=== PATIENT | female | born 1990 | race Caucasian/White ===

== ENCOUNTER 2016-09-10 14:38 | Emergency (ER) | payer OTHER ==
[~2016-09-10] VITALS: Ht 157.5 cm; Wt 68.1 kg
[2016-09-10 14:39] VITALS: BP 131/86
[2016-09-10] MEDS ORDERED: TOPI50TA9 PO (14:52)
[2016-09-10] MEDS ORDERED: AMIT75TA PO (14:52)
[2016-09-10] MEDS ORDERED: METF500T13 PO (14:52)
[2016-09-10] MEDS ORDERED: MIREIUD (14:52)
[2016-09-10] MEDS ORDERED: IBUP80TA (14:52)
[2016-09-10] MEDS ORDERED: KETOROLAC 60 MG/2 ML VIAL (J1885) IM ONE (17:00)
[2016-09-10] MEDS ORDERED: metroNIDAZOLE (FLAGYL) 500 MG TAB PO ONE (18:15)
--- NOTE | 2016-09-10 18:35 | REP ---
NON-OB PELVIS ULTRASOUND: HISTORY: Pelvic pain. The uterus is normal in size. The uterus measures 3.7 cm in transverse by 3.2 cm AP by 6.4 cm in cephalocaudal dimensions. The endometrium measures 6.3 mm. An IUD is present in the endometrial cavity. The right ovary measures 4.5 x 2.1 x 2.1 cm. The left ovary measures 3.6 x 2 x 3.1 cm. There is no free fluid. There are no filling defects in the urinary bladder. IMPRESSION: Normal pelvic ultrasound. An IUD is present. Signed by Cole He MD 09/10/2016 06:51 P
[2016-09-10] MEDS ORDERED: FLAG500T PO (18:52)
[2016-11-22] MEDS ORDERED: IBUP1TAB7 PO (13:17)
[2016-11-22] MEDS ORDERED: ZOMI5TAB12 PO (13:17)
== END 2016-09-10 19:08 | disposition home or self-care (01) ==
LOC: M ED 14:38
DX: N76.0 Acute vaginitis (principal); G43.709 Chronic migraine without aura, not intractable, without status migrainosus; E28.2 Polycystic ovarian syndrome; Z87.42 Personal history of other diseases of the female genital tract; Z88.5 Allergy status to narcotic agent; Z88.8 Allergy status to other drugs, medicaments and biological substances; Z79.899 Other long term (current) drug therapy; Z79.3 Long term (current) use of hormonal contraceptives
CPT/HCPCS: 76830; 76856; 81001; 81025; 87210; 87491; 87591; 93976; 96372; 99284; J1885

== ENCOUNTER 2016-11-26 07:05 | Day surgery (SDC) | payer OTHER ==
[~2016-11-26] VITALS: Ht 157.5 cm; Wt 64.9 kg
[~2016-11-26 07:05] MED LIST: AMIT75TA PO; FLAG500T PO; IBUP1TAB7 PO; IBUP80TA; METF500T13 PO; MIREIUD; TOPI50TA9 PO; ZOMI5TAB12 PO
[2016-11-26] MEDS ORDERED: GLYCOPYRROLATE INJ 0.2 MG/ML 2 ML VIAL As Ordered ONE (07:09)
[2016-11-26] MEDS ORDERED: ROCURONIUM BROMIDE 50 MG/5 ML VIAL/SYRINGE As Ordered ONE (07:09)
[2016-11-26] MEDS ORDERED: LIDOCAINE 2% INJ 100 MG/5 ML SDV (FOR ANES.) As Ordered ONE (07:09)
[2016-11-26] MEDS ORDERED: PROPOFOL 200 MG/20 ML VIAL As Ordered ONE (07:09)
[2016-11-26] MEDS ORDERED: ONDANSETRON 4MG/2ML VIAL (J2405) As Ordered ONE ×2 (07:10→09:21)
[2016-11-26] MEDS ORDERED: dexameTHASONE 4 MG/ML 1ML VIAL (J1100) As Ordered ONE (07:10)
[2016-11-26] MEDS ORDERED: NEOSTIGMINE 10 MG/10 ML VIAL (J2710) As Ordered ONE (07:10)
[2016-11-26] MEDS ORDERED: MIDAZOLAM INJ 2 MG/2 ML VIAL (J2250) As Ordered ONE (07:11)
[2016-11-26] MEDS ORDERED: fentaNYL 100 MCG/2 ML INJECTION (J3010) As Ordered ONE ×2 (07:11→09:21)
[2016-11-26] MEDS ORDERED: METHYLENE BLUE 0.5% (5MG/ML) 10 ML AMP (PROVAYBLUE)(Q9968 PER 1MG) As Ordered ONE (07:18)
[2016-11-26] MEDS ORDERED: BUPIVACAINE HCL 0.25% 30 ML VIAL As Ordered ONE (07:19)
[2016-11-26] MEDS ORDERED: ACETAMINOPHEN 650 MG SUPP As Ordered ONE (07:19)
[2016-11-26] MEDS ORDERED: SCOPOLAMINE 1.5 MG TRANSDERMAL As Ordered ONE (07:27)
[2016-11-26] MEDS ORDERED: LR 1,000 ML IV SCH ×3 (07:30→09:45)
[2016-11-26 07:33] LABS: MEAN CORPUSCULAR HEMOGLOBIN 32.1 pg (27.0-33.0); MEAN CORPUSCULAR HGB CONC 34.7 g/dl (32.0-36.5); MEAN CORPUSCULAR VOLUME 92.3 fl (80.0-96.0); RED CELL DISTRIBUTION WIDTH 11.9 % (11.5-14.5); WHITE BLOOD COUNT 9.9 10^3/uL (4.0-10.0)
[2016-11-26] MEDS ORDERED: SCOPOLAMINE 1.5 MG TRANSDERMAL TOP ONE (07:45)
[2016-11-26 07:58] LABS: ANION GAP 5 MEQ/L (8-16); BLOOD UREA NITROGEN 12 MG/DL (7-18); CARBON DIOXIDE LEVEL 26 MEQ/L (21-32); CHLORIDE LEVEL 110 MEQ/L (98-107); CREATININE FOR GFR 0.89 MG/DL (0.55-1.02); GLOMERULAR FILTRATION RATE > 60.0 (>60); GLUCOSE, FASTING 94 MG/DL (70-105); HCG, SERUM QUANTITATIVE < 1.0 MIU/ML; POTASSIUM SERUM 4.2 MEQ/L (3.5-5.1); SODIUM LEVEL 141 MEQ/L (136-145)
[2016-11-26] MEDS ORDERED: HYDROmorphone HCL 2 MG/ML 1ML VIAL (J1170) As Ordered ONE (08:38)
[2016-11-26] MEDS ORDERED: KETOROLAC 30 MG/ML VIAL (J1885) As Ordered ONE (09:21)
[2016-11-26] MEDS ORDERED: PERCOCET 5MG/325MG TAB As Ordered ONE (09:21)
[2016-11-26] MEDS: fentaNYL 100 MCG/2 ML INJECTION (J3010) IV PRN ×4 (09:25→09:40)
[2016-11-26] MEDS: PERCOCET 5MG/325MG TAB PO PRN ×2 (09:30→10:00)
[2016-11-26] MEDS ORDERED: KETOROLAC 30 MG/ML VIAL (J1885) IV PRN (09:30)
[2016-11-26] MEDS ORDERED: ONDANSETRON 4MG/2ML VIAL (J2405) IV PRN (09:45)
[2016-11-26 11:29] VITALS: BP 111/56
--- NOTE | 2016-12-01 09:17 | RO ---
DATE OF PROCEDURE: 11/26/2016 PREOPERATIVE DIAGNOSES: PCOS, impacted intrauterine contraceptive device (IUCD), dysmenorrhea, primary infertility. POSTOPERATIVE DIAGNOSES: PCOS, nonpatent right tube, patent left tube, stage I endometriosis, and impacted IUCD. OPERATION PROPOSED: Laparoscopy, stage, grade, vaporization endometriosis, chromotubation, hysteroscopy, dilation and curettage (D and C), removal of IUCD. OPERATION PERFORMED: Diagnostic laparoscopy, chromotubation of tubes, removal of IUCD, D and C. SURGEON: Alfa Son MD MANAGER OF WAREHOUSE: Macho Griffin MD ANESTHESIA: General, plus local anesthetic for intraperitoneal procedures. ESTIMATED BLOOD LOSS: 20 mL. No antibiotics required. DESCRIPTION OF PROCEDURE: Under adequate anesthesia, prepped and draped in the supine position, Sun catheter in the bladder draining clear urine. A time-out performed. Weighted speculum in vagina. A single-tooth tenaculum on the anterior lip of the cervix. We were able to document the strings of the IUCD and, therefore, this was pulled, after which it was sent to pathology under separate cover. A single-tooth tenaculum on the anterior lip of cervix and a uterine elevator placed in the endocervical canal for chromotubation. Reprepping, draping, small subumbilical incision made. Direct entry into the abdomen. No evidence of perforation, hemorrhage or bleeding. Panoramic review of the right upper quadrant was normal. The left upper quadrant was normal. Anterior aspect of the bladder was clear. Both round ligaments were normal. Both tubes appeared normal to the fimbriated end. Interestingly, both ovaries appeared to be polycystic with a thick white covering, no evidence of ovulation. In the cul-de-sac, there was scant areas of endometriosis with staining of the peritoneal surfaces. A 3 mm port was placed on the right side elevating the uterus to identify the uterosacrals and the endometriosis. We then, under direct vision, did a chromotubation of the tubes, and the left tube was patent. The right tube was blocked from the corner right to the fimbriated end. Despite the fact that the tube itself looked absolutely normal with a normal fimbriated end, obviously, there is some type of blockage at the cornual end, possibly endometriosis. We blocked off the left tube to increase pressure and chances of getting the right tube to be patent, although it never spilled and never entered the tube. The uterus itself dilated up but, obviously, no pressure went through having the dye go through the right tube. We lavaged out the abdomen that had the dye in it, left 150 mL of normal saline in place. Going below, we then did a curettage. This patient's last period was 11/16/2016. The uterus was placed in anatomical position. The uterine elevator was taken out of the uterus. Sun catheter was removed. The surgical first assistant put Dermabond in the incisional sites and skin tapes after local installation Marcaine 0.25%, 10 mL, and the patient was then sent to recovery in good condition. PLAN: Options are if patient is not wanting to get immediately, Mirena IUCD or continuous oral contraceptives or Depo-Provera to suppress the endometriosis or 3 months of Depo Lupron with reevaluation of tube at that time. Patient can still get off the left side, but the right side is definitely blocked for etiology unknown. All this was discussed with the patient.
== END 2016-11-26 11:48 | disposition home or self-care (01) ==
LOC: M SDC 07:05
PROVIDERS: ATTEND Obstetrics & Gynecology
DX: E28.2 Polycystic ovarian syndrome (principal); T83.39XA Other mechanical complication of intrauterine contraceptive device, initial encounter; N80.3 Endometriosis of pelvic peritoneum; N83.8 Other noninflammatory disorders of ovary, fallopian tube and broad ligament; G43.909 Migraine, unspecified, not intractable, without status migrainosus; Z88.5 Allergy status to narcotic agent; Z88.8 Allergy status to other drugs, medicaments and biological substances; Z79.899 Other long term (current) drug therapy; X58.XXXA Exposure to other specified factors, initial encounter; Y92.89 Other specified places as the place of occurrence of the external cause; Y93.89 Activity, other specified; Y99.8 Other external cause status
CPT/HCPCS: 36415; 58301; 58350; 58558; 58662; 80048; 84702; 85027; 88300; 88305; J1100; J1170; J1885; J2250; J2405; J2710; J3010; Q9968

== ENCOUNTER 2018-02-18 14:40 | Emergency (ER) | payer OTHER ==
[~2018-02-18] VITALS: Ht 154.9 cm; Wt 64.1 kg
[~2018-02-18 14:40] MED LIST changes: +MIRE1IUD; -MIREIUD
[2018-02-18] MEDS ORDERED: BOTO10VL IM (14:47)
[2018-02-18] MEDS ORDERED: NEXP1IMP SC (14:47)
[2018-02-18] MEDS ORDERED: diphenhydrAMINE INJ 50MG/ML VIAL (J1200) IV STA (15:17)
[2018-02-18] MEDS ORDERED: KETOROLAC 30 MG/ML VIAL (J1885) IV ONE (15:30)
[2018-02-18] MEDS ORDERED: METOCLOPRAMIDE INJ 10MG/2ML VIAL (J2765) IV ONE (15:30)
[2018-02-18] MEDS ORDERED: NS 1,000 ML IV ONE (15:30)
[2018-02-18 16:02] LABS: BLOOD UREA NITROGEN 14 MG/DL (7-18); CALCIUM LEVEL 8.4 MG/DL (8.5-10.1); CARBON DIOXIDE LEVEL 24 MEQ/L (21-32); CHLORIDE LEVEL 113 MEQ/L (98-107); CREATININE FOR GFR 0.94 MG/DL (0.55-1.30); GLOMERULAR FILTRATION RATE > 60.0 (>60); GLUCOSE, FASTING 68 MG/DL (70-100); MAGNESIUM LEVEL 2.1 MG/DL (1.8-2.4); POTASSIUM SERUM 3.6 MEQ/L (3.5-5.1); SODIUM LEVEL 145 MEQ/L (136-145)
[2018-02-18] MEDS ORDERED: MAG SULF 1GM/100ML (MAG RUN) 1 GM in APPROPRIATE DILUENT 1 EA IV ONE (17:00)
--- NOTE | 2018-02-18 17:40 | REP ---
CT BRAIN WITHOUT IV CONTRAST: CT brain performed without IV contrast. Ventricles are normal in size and position with no midline shift or mass effect. Victor/white differentiation is well maintained. There is no acute intracranial hemorrhage or extra-axial fluid collection. Bone window examination is unremarkable. Visualized paranasal sinuses are clear. IMPRESSION: Negative noncontrast CT brain. Electronically Signed by Macho Victor MD 02/18/2018 07:58 P
[2018-02-18] MEDS ORDERED: VALPROATE SOD INJ 1,000 MG in D5W 50 ML IV ONE (18:00)
[2018-02-18 19:41] VITALS: BP 115/69
== END 2018-02-18 19:43 | disposition home or self-care (01) ==
LOC: M ED 14:40
DX: G43.909 Migraine, unspecified, not intractable, without status migrainosus (principal); E28.2 Polycystic ovarian syndrome; M54.81 Occipital neuralgia; Z79.899 Other long term (current) drug therapy; Z79.3 Long term (current) use of hormonal contraceptives; Z88.5 Allergy status to narcotic agent; Z88.8 Allergy status to other drugs, medicaments and biological substances
CPT/HCPCS: 70450; 80048; 83735; 96365; 96366; 96375; 99284; J1200; J1885; J2765; J3475

== ENCOUNTER → 2018-02-24 | Outpatient (REF) | payer OTHER ==
[~2018-02-24] MED LIST changes: +BOTO10VL IM; +NEXP1IMP SC
[2018-02-24 15:32] LABS: ALBUMIN 4.3 GM/DL (3.2-5.2); ALT/SGPT 18 U/L (12-78); BILIRUBIN,TOTAL 0.3 MG/DL (0.2-1.0); BLOOD UREA NITROGEN 12 MG/DL (7-18); CALCIUM LEVEL 8.8 MG/DL (8.5-10.1); CARBON DIOXIDE LEVEL 23 MEQ/L (21-32); CHLORIDE LEVEL 109 MEQ/L (98-107); CREATININE FOR GFR 0.96 MG/DL (0.55-1.30); GLOMERULAR FILTRATION RATE > 60.0 (>60); GLUCOSE, FASTING 77 MG/DL (70-100); POTASSIUM SERUM 3.8 MEQ/L (3.5-5.1); SODIUM LEVEL 141 MEQ/L (136-145); TOTAL PROTEIN 7.2 GM/DL (6.4-8.2)
[2018-02-24 15:43] LABS: BASO # 0.1 10^3/uL (0.0-0.2); EOS # 0.6 10^3/uL (0.0-0.50); EOS % 9.5 % (0.0-3.0); HEMATOCRIT 42.5 % (36.0-47.0); HEMOGLOBIN 14.2 g/dl (12.0-15.5); LYMPH # 1.8 10^3/uL (1.5-6.5); LYMPH % 31.8 % (24.0-44.0); MEAN CORPUSCULAR HEMOGLOBIN 31.3 pg (27.0-33.0); MEAN CORPUSCULAR HGB CONC 33.4 g/dl (32.0-36.5); MEAN CORPUSCULAR VOLUME 93.8 fl (80.0-96.0); MONO # 0.4 10^3/uL (0.0-0.8); MONO % 7.3 % (0.0-5.0); NEUTROPHILS # 2.9 10^3/uL (1.8-7.7); NEUTROPHILS % 50.2 % (36.0-66.0); PLATELET COUNT, AUTOMATED 361 10^3/uL (150-450); RED BLOOD COUNT 4.53 10^6/uL (4.00-5.40); WHITE BLOOD COUNT 5.8 10^3/uL (4.0-10.0)
[2018-02-28 00:06] LABS: AMITRIPTYLINE None Detected (Not Estab.); NORTRIPTYLINE None Detected (Not Estab.); TOPIRAMATE LEVEL 7.1 ug/mL (2.0-25.0)
== END ==
LOC: M LABNEURO 13:07
PROVIDERS: ATTEND Psychiatry & Neurology Neurology
DX: G43.909 Migraine, unspecified, not intractable, without status migrainosus (principal)

== ENCOUNTER 2018-07-09 10:35 | Emergency (ER) | payer OTHER ==
[~2018-07-09] VITALS: Ht 154.9 cm; Wt 66.4 kg
[2018-07-09] MEDS ORDERED: VITA500T9 (10:45)
[2018-07-09] MEDS ORDERED: AJOV225I (10:45)
[2018-07-09 12:08] LABS: BASO # 0.1 10^3/uL (0.0-0.2); BASO % 0.9 % (0.0-1.0); EOS # 0.6 10^3/uL (0.0-0.50); EOS % 9.7 % (0.0-3.0); HEMATOCRIT 39.7 % (36.0-47.0); HEMOGLOBIN 13.7 g/dl (12.0-15.5); LYMPH # 2.4 10^3/uL (1.5-6.5); LYMPH % 36.9 % (24.0-44.0); MEAN CORPUSCULAR HEMOGLOBIN 32.3 pg (27.0-33.0); MEAN CORPUSCULAR HGB CONC 34.5 g/dl (32.0-36.5); MEAN CORPUSCULAR VOLUME 93.6 fl (80.0-96.0); MONO # 0.5 10^3/uL (0.0-0.8); MONO % 8.2 % (0.0-5.0); NEUTROPHILS # 2.9 10^3/uL (1.8-7.7); NEUTROPHILS % 44.1 % (36.0-66.0); PLATELET COUNT, AUTOMATED 361 10^3/uL (150-450); RED BLOOD COUNT 4.24 10^6/uL (4.00-5.40); WHITE BLOOD COUNT 6.5 10^3/uL (4.0-10.0)
[2018-07-09 12:32] LABS: BLOOD UREA NITROGEN 11 MG/DL (7-18); CALCIUM LEVEL 9.1 MG/DL (8.5-10.1); CARBON DIOXIDE LEVEL 21 MEQ/L (21-32); CHLORIDE LEVEL 112 MEQ/L (98-107); CREATININE FOR GFR 0.85 MG/DL (0.55-1.30); GLOMERULAR FILTRATION RATE > 60.0 (>60); GLUCOSE, FASTING 80 MG/DL (70-100); POTASSIUM SERUM 3.9 MEQ/L (3.5-5.1); SODIUM LEVEL 142 MEQ/L (136-145)
[2018-07-09] MEDS ORDERED: ACETAMINOPHEN TAB 650MG DOSE (2X325MG) PO ONE (13:15)
--- NOTE | 2018-07-09 15:06 | REP ---
ABDOMINAL SERIES: Supine and erect views of the abdomen demonstrate no free air and no evidence for obstruction. No dilated small bowel loops are seen. There are multiple phleboliths in the pelvis. There is partial sacralization of L5 on the right. An accompanying view of the chest demonstrates no acute infiltrate. Heart is normal in size and the mediastinal silhouette is unremarkable. IMPRESSION: Negative abdominal series. Electronically Signed by Macho Victor MD 07/09/2018 04:36 P
--- NOTE | 2018-07-09 15:10 | REP ---
Pelvic sonography: History: History of polycystic ovary syndrome. Pelvic pain. Comparison study: September 10, 2016. Findings: Transabdominal and transvaginal scanning are performed. Uterine dimensions are 7.5 x 3.3 x 4.3 cm. Endometrial echo 0.6 cm in thickness. No focal uterine mass is seen. No free fluid is noted. Visualized bladder wylie are smooth. There is a 3.5 x 2.6 x 2.1 cm simple cyst on the right ovary. Inclusive of this, right ovarian dimensions are 5.0 x 2.5 x 3.7 cm. Doppler flow to the right ovary is normal with resistive index 0.52. The left ovary measures 3.0 x 1.9 x 3.3 cm and appears normal. Its Doppler flow is intact as well with resistive index 0.55. Impression: Simple cyst right ovary 3.5 cm in greatest diameter. Otherwise negative pelvic sonography. Electronically Signed by Wilberto Lyons MD 07/09/2018 03:53 P
[2018-07-09] MEDS ORDERED: ISOVUE-370 76% 100ML VIAL (Q9967) As Ordered ONE (15:13)
[2018-07-09] MEDS ORDERED: NS 1,000 ML IV ONE (15:45)
[2018-07-09 16:04] LABS: BASO # 0.1 10^3/uL (0.0-0.2); BASO % 0.7 % (0.0-1.0); EOS # 0.6 10^3/uL (0.0-0.50); EOS % 7.5 % (0.0-3.0); HEMATOCRIT 36.2 % (36.0-47.0); HEMOGLOBIN 12.3 g/dl (12.0-15.5); LYMPH # 2.7 10^3/uL (1.5-6.5); LYMPH % 36.6 % (24.0-44.0); MEAN CORPUSCULAR HEMOGLOBIN 31.2 pg (27.0-33.0); MEAN CORPUSCULAR VOLUME 91.9 fl (80.0-96.0); MONO # 0.6 10^3/uL (0.0-0.8); MONO % 8.1 % (0.0-5.0); NEUTROPHILS # 3.4 10^3/uL (1.8-7.7); NEUTROPHILS % 46.8 % (36.0-66.0); PLATELET COUNT, AUTOMATED 334 10^3/uL (150-450); RED BLOOD COUNT 3.94 10^6/uL (4.00-5.40); WHITE BLOOD COUNT 7.3 10^3/uL (4.0-10.0)
--- NOTE | 2018-07-09 16:30 | REP ---
Clinical: Right lower quadrant pain. Technique: Axial contrast enhanced images from the lung bases to the pubic symphysis using 100 ml Isovue 370 intravenous contrast material with coronal and sagittal re-formations. Findings: Lung bases clear. Visualized heart and pericardium normal. Liver, spleen, pancreas, gallbladder, bilateral adrenal glands and kidneys are essentially normal. 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 The enteric system suggests fecal stasis without obstruction or acute inflammatory process. Normal terminal ileum and appendix identified in the right lower quadrant. Pelvis demonstrates normal bladder and age-appropriate uterus/adnexa. Cystic changes to the right ovary are confirmed by recent pelvic ultrasound. No ascites. No free air. No adenopathy. Abdominal aorta without aneurysm or dissection. Musculoskeletal structures intact. Impression: 1. Right ovarian cyst consistent with findings on pelvic ultrasound. 2. No acute abdominopelvic pathology appreciated. Specifically, no evidence for appendicitis. Electronically Signed by Jaydon Rosario MD 07/09/2018 04:21 P
[2018-07-09] MEDS ORDERED: PERC5TAB12 PO (17:28)
[2018-07-09 17:55] VITALS: BP 119/72
== END 2018-07-09 17:56 | disposition home or self-care (01) ==
LOC: M ED 10:35
DX: N83.201 Unspecified ovarian cyst, right side (principal); K62.5 Hemorrhage of anus and rectum; G47.30 Sleep apnea, unspecified; G43.909 Migraine, unspecified, not intractable, without status migrainosus; Z88.5 Allergy status to narcotic agent; Z88.8 Allergy status to other drugs, medicaments and biological substances; Z79.899 Other long term (current) drug therapy; Z79.84 Long term (current) use of oral hypoglycemic drugs
CPT/HCPCS: 74021; 74177; 76830; 76856; 80048; 81001; 85025; 86850; 86900; 86901; 93976; 96360; 99284; Q9967

== ENCOUNTER → 2018-10-09 | Outpatient (REF) | payer OTHER ==
[~2018-10-09] MED LIST changes: +AJOV225I; +PERC5TAB12 PO; +VITA500T9
== END ==
LOC: M LAB REF 17:08
PROVIDERS: ATTEND Internal Medicine Endocrinology, Diabetes & Metabolism
DX: E04.1 Nontoxic single thyroid nodule (principal)